=== PATIENT | male | born 1945 | race Caucasian/White ===

== ENCOUNTER 2016-06-06 13:43 | Outpatient (CLI) | payer MEDICARE, OTHER | END 2016-06-06 13:44 | disposition home or self-care (01) | DX: G47.33 Obstructive sleep apnea (adult) (pediatric) (principal) | CPT/HCPCS: 99214; G0463 ==

== ENCOUNTER 2017-06-07 09:44 | Outpatient (CLI) | payer MEDICARE, OTHER | END 2017-06-07 09:45 | disposition home or self-care (01) | LOC: SC 09:44 | PROVIDERS: ATTEND Nurse Practitioner Family | DX: G47.33 Obstructive sleep apnea (adult) (pediatric) (principal) | CPT/HCPCS: 99214; G0463; 99212 ==

== ENCOUNTER 2017-07-04 19:03 | Outpatient (CLI) | payer MEDICARE, OTHER | END 2017-07-04 19:04 | disposition home or self-care (01) | LOC: SC 19:03 | PROVIDERS: ATTEND Internal Medicine Pulmonary Disease | DX: G47.33 Obstructive sleep apnea (adult) (pediatric) (principal); G47.61 Periodic limb movement disorder | CPT/HCPCS: 95810 ==

== ENCOUNTER 2017-08-21 13:57 | Outpatient (CLI) | payer MEDICARE, OTHER | END 2017-08-21 13:58 | disposition home or self-care (01) | LOC: SC 13:57 | PROVIDERS: ATTEND Nurse Practitioner Family | DX: G47.33 Obstructive sleep apnea (adult) (pediatric) (principal); G47.61 Periodic limb movement disorder | CPT/HCPCS: 99214; G0463; 99212 ==

== ENCOUNTER 2018-11-12 10:18 | Outpatient (CLI) | payer MEDICARE, OTHER ==
--- NOTE | 2018-11-12 11:49 | SLEEP CARE CONSULTATION ---
Information from patient questionnaire entered by Aminah Viera. I have reviewed and concur with the information entered by Aminah Viera. This document represents the service I personally performed and the decisions made by me, Mary Arrieta, RN, MSN, FISH HATCHERY SUPERINTENDENT. History of Present Illness Previous diagnosis: Moderate, Obstructive Sleep Apnea-Hypopnea Syndrome AHI: 27.4 Reason for CPAP/BiPAP follow up: annual Equipment type: CPAP Equipment obtained from: [facility] Mask style: Nasal Mask brand: Resmed Backup mask available: Yes Last cushion change: 1 month Prior sleep studies: Yes Year and Where: 2017 [facility] additional information: Changes since last seen is that patient never received his updated CPAP ordered last year. He was informed by [facility], something was not right with order. He called here in January and informed staff at [employer] [facility] [employer] as noted in progress notes and then she called [facility] and left message. She then left voicemail with patient of above. He became frustrated with [facility] and did not use CPAP for awhile. Non use time included travel when unable to use CPAP. He then resumed CPAP use and has used daily since then. CPAP Compliance Data - Data Reviewed with Patient Average duration of nightly device use: 5H 32M Compliance rate %: 87 (the past 60 days) Current pressure setting (cmH2O): 8 Average residual AHI: 2.6 Average large leak: 0.3 liters per minute Subjective Missed days of use due to: reports: travel, other (frustration with not hearing from [facility] about update. ) Patient concerns: reports: nasal congestion (only in morning for short periods ), other (noted some redness around nose where CPAP sits. ). denies: aerophagia, mask discomfort, air blowing in eyes, mask leak noise, condensation in mask/hose, dry mouth, nose, throat, epistaxis Observed to snore while using device: No Current pressure setting perceived as: comfortable On therapy, patient: reports: more rested overall. denies: drowsiness while driving Initial [place] Sleepiness Scale score: 3 Current [place] Sleepiness Scale score: 5 Allergies and Home Medications Known drug allergies: No Home medication list reviewed: Yes Allergy and home medication list: Medication Name (generic/name brand) Strength & Dosage Aspirin 81mg tab one daily Vitamin D 1000IU tab one daily Centrum Silver Adults 50+ Tab one daily Viagra PRN Review of Systems Review of systems same as previous: Yes (He denies any changes) Physical Exam Blood Pressure: 134/70 Cuff size: long Heart Rate: 64 O2 Saturation: 98 Weight (kg): 80.739 kg Weight change since last visit: lost 6 pounds Impression and Plan 1. Obstructive Sleep Apnea-Hypopnea Syndrome,moderate, with good treatment c ompliance and apnea control. On CPAP therapy, the patient is more rested overall. Since he is due for a new device, I will again order. He is advised to contact this office if any difficulty getting the device. He is advised that once he receives the device, he is to contact this office for compliance follow up. He was shown both new CPAP devices and he would like the [employer]. Since he has lost weight and plans on losing more weight, I explained how continued weight loss could reduce his CPAP pressure requirements. I will set his CPAP on an autoCPAP to accomodate weight change. Patient agreed with plan. Patient's apnea severity and rationale for treatment to reduce apnea, improve sleep quality and reduce cardiovascular and cerebrovascular events was reviewed. Since his apnea is more severe supine, he was advised to avoid supine sleep if unable to use CPAP. * Update CPAP and set at 6-10 cmH2O * Avoid sleeping supine if unable to use CPAP * Notify me if snoring with mask or feeling that the pressure is too much or too little * Attempt to lose weight * Return for follow up in 6 weeks after CPAP device. , or sooner if concerns arise I spent 100% of this 30 minute visit face to face with the patient with greater than 50% of this was spent time counseling the patient and coordination of care.
[2018-11-12 17:21] VITALS: BP 134/70
== END 2018-11-12 10:19 | disposition home or self-care (01) ==
LOC: SC 10:18
PROVIDERS: ATTEND Nurse Practitioner Family
DX: G47.33 Obstructive sleep apnea (adult) (pediatric) (principal)
CPT/HCPCS: 99214; G0463; 99212

== ENCOUNTER 2019-09-04 15:18 | Outpatient (CLI) | payer MEDICARE, OTHER ==
[2019-09-04 16:57] VITALS: BP 134/80
--- NOTE | 2019-09-04 16:57 | SLEEP CARE CONSULTATION ---
Information from patient questionnaire entered by Haley Pichardo. I have reviewed and concur with the information entered by Haley Pichardo. This document represents the service I personally performed and the decisions made by me, Mary Arrieta, RN, MSN, INTEGR[employer] LOGISTICS SUPPORT MANAGER. History of Present Illness Service Date and Time: 09/04/2019 1518 Previous diagnosis: Moderate, Obstructive Sleep Apnea-Hypopnea Syndrome AHI: 27.4 (in 2018)(73 in 1998) Reason for follow up: other Accompanied by: (9 month) Equipment type: CPAP Equipment obtained from: [facility] (getting supplies well until recently - he called and clarified set up that they will call when due for supplies to see if needs) Mask style: Nasal Mask brand: Resmed Backup mask available: Yes (old mask) Last cushion change: a week ago Prior sleep studies: Yes Year and Where: 2018 - [facility] Type of Sleep Study: Polysomnography CPAP Compliance Data - Data Reviewed with Patient Average duration of nightly device use: 6.3 Compliance rate %: 84.4 (180 days) Current pressure setting (cmH2O): 6-10 Humidity settin Heated hose settin Average residual AHI: 6.0 Central apnea: 0.6 Obstructive apnea: 1.2 Hypopnea: 4.1 Average large leak: 5 sec Subjective Patient concerns: reports: nasal congestion (Slight in morning /does not change filter very often ), other (CPAP did not work last night. discovered it was unplugged this morning and now works. ). denies: aerophagia, mask discomfort, air blowing in eyes, mask leak noise, condensation in mask/hose, dry mouth, nose, throat, epistaxis Observed to snore while using device: Yes (occasionally ) Current pressure setting perceived as: comfortable On therapy, patient: reports: sleeping better, awakening more refreshed, being more awake and alert during the day, more rested overall. denies: drowsiness while driving Initial [place] Sleepiness Scale score: 0 (in 2012) Current [place] Sleepiness Scale score: 2 Allergies and Home Medications Known drug allergies: No Home medication list reviewed: No (no changes stated) Review of Systems Review of systems same as previous: Yes Physical Exam Blood Pressure: 134/80 Cuff size: long Heart Rate: 97 O2 Saturation: 60 Height: 5 ft 10 in Weight: 182 lb (gained 7 pounds) Body Mass Index: 26.1 BMI Classification: Overweight Impression and Plan 1. Obstructive Sleep Apnea-Hypopnea Syndrome, moderate, with good treatment comp liance and mild residual apnea. On CPAP therapy, the patient has better sleep quality and is more rested overall. The patients pressure will be changed to autoCPAP [id number] For elevation of residual AHI. He was counseled not to gain more weight as significant weight gain can increase his CPAP pressure requirements. Patient advised to contact me if pressure change is uncomfortable so that it can be adjusted. Goals for apnea control discussed.To reduce nasal congestion, he is to change his filters at least monthly. In addition, nasal congestion can be reduced with increasing the CPAP humidity as shown on sample device. The heated hose can be adjusted higher if condensation with higher humidity setting. Saline nasal spray can be used prior to CPAP to clear nasal secretions and wash off any nasal allergens to facilitate nasal breathing. In addition, a steamy shower before bed will often assist nasal drainage. Verbal instructions given. Patient can check manual if does not remember. If not , he can contact [facility]. Patient's apnea severity and rationale for treatment to reduce apnea, improve sleep quality and reduce cardiovascular and cerebrovascular events was reviewed. * Change auto CPAP pressure at 8-12 cmH2O * Implement measures to reduce nasal congestion * Notify me if snoring with mask or feeling that the pressure is too much or too little * Attempt to lose weight * Call this office if any problems using CPAP * Return for follow up in 1 year , or sooner if concerns arise Visit Type: In Office Time Spent with Patient (minutes): 30 Provider Statement: I spent 100% of the Face to Face Visit with the patient with greater than 50% spent counseling the patient and coordination of care.
== END 2019-09-04 15:19 | disposition home or self-care (01) ==
LOC: SC 15:18
PROVIDERS: ATTEND Nurse Practitioner Family
DX: G47.33 Obstructive sleep apnea (adult) (pediatric) (principal); E66.3 Overweight; Z68.26 Body mass index [BMI] 26.0-26.9, adult
CPT/HCPCS: 99214; G0463; 99212

== ENCOUNTER 2019-10-20 08:00 | Outpatient (CLI) | payer MEDICARE, OTHER ==
[2019-10-20 12:50] LABS: ALKALINE PHOSPHATASE 66 IU/L (42-121); ALT ALANINE AMINOTRANSFERASE 16 IU/L (10-60); AST ASPARTATE AMINOTRANSFERASE 22 IU/L (10-42); BILIRUBIN,TOTAL 0.5 mg/dL (0.2-1.0); BUN - BLOOD UREA NITROGEN 22 mg/dL (6-20); CALCIUM 9.6 mg/dL (8.5-10.3); CARBON DIOXIDE - CO2 26 mmol/L (21-32); CHLORIDE 103 mmol/L (101-111); CHOL/HDL RATIO 5.4 (<5.0); CHOLESTEROL 205 mg/dL; CREATININE 0.9 mg/dL (0.6-1.2); GLUCOSE 96 mg/dL (70-100); HDL CHOLESTEROL 38 mg/dL; LDL CHOLESTEROL,CALCULATED 128 mg/dL; LDL/HDL RATIO 3.4 (<3.6); SODIUM 137 mmol/L (135-145); VLDL CHOLESTEROL 39 mg/dL
== END 2019-10-20 23:59 | disposition home or self-care (01) ==
LOC: LAB.WCP 08:00
PROVIDERS: ATTEND Internal Medicine
DX: E78.2 Mixed hyperlipidemia (principal); G47.33 Obstructive sleep apnea (adult) (pediatric)
CPT/HCPCS: 36415; 80053; 80061; 83721; 84153

== ENCOUNTER 2020-06-27 17:12 | Outpatient (CLI) | payer MEDICARE, OTHER | END 2020-06-27 17:13 | disposition short-term general hospital (02) | LOC: EMS 17:12 | DX: I46.9 Cardiac arrest, cause unspecified (principal) | CPT/HCPCS: A0425; A0433 ==